=== PATIENT | male | born 1965 | race Caucasian/White ===

== ENCOUNTER 2018-01-20 23:38 | Emergency (ER) | payer SELFPAY ==
[2018-01-20 23:43] VITALS: BP 189/121; PULSE 114; RESP 24; TEMP 37; O2SAT 98; BMI 30.7
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
[2018-01-21 00:14] VITALS: BP 165/100; PULSE 110; RESP 18; TEMP 37; O2SAT 97
== END 2018-01-21 00:21 | disposition home or self-care (01) ==
PROVIDERS: Emergency Provider Emergency Medicine; Family Provider Family Medicine
DX: T65.891A Toxic effect of other specified substances, accidental (unintentional), initial encounter (principal); H57.10 Ocular pain, unspecified eye; Y35.893A Legal intervention involving other specified means, suspect injured, initial encounter; Z02.89 Encounter for other administrative examinations
CPT/HCPCS: 99282

== ENCOUNTER 2020-12-28 09:14 | Emergency (ER) | payer SELFPAY ==
[2020-12-28 09:22] VITALS: BP 155/90; PULSE 82; RESP 16; TEMP 36.7; O2SAT 97; BMI 30.7
--- NOTE | 2020-12-28 09:28 | HMH.EDUTC ---
[facility] [place] Disposition Clinical Impression: Exposure to COVID-19 virus Disposition: Home, Self-Care Condition on Discharge: Good Instructions: Preventing the Spread of Coronavirus Discharge Instructions Additional Instructions: Drink plenty of fluids. Take tylenol for pain or fever. Return if you begin to have difficulty breathing. Follow up with your regular doctor. GO TO THE ER FOR ANY WORSENING SYMPTOMS Referrals: Arturo Tang MD [Primary Care Provider] - Time of Disposition: 09:29 Medical Decision Making - Medical Records Medical records reviewed: No: I reviewed the patient's medical records. - Titus Inquiry Pt receiving controlled substance: No Vital Signs: 12/28/20 09:22 12/28/20 09:30 Temperature 98.1 F 97.9 F Temperature Source Oral Oral Pulse Rate 84 Pulse Rate [Right] 82 Respiratory Rate 16 16 Blood Pressure 146/89 H Blood Pressure [Left Arm] 155/90 H Blood Pressure Mean [Left Arm] 111 Blood Pressure Source [Left Arm] Automatic Cuff Blood Pressure Position [Left Arm] Sitting 02 Sat by Pulse Oximetry 97 Oxygen Delivery Method Room Air Orders (Tests/Meds): ORDERS Category Date Time Status Covid-19 Nasal PCR ([facility]) Routine Lab 12/28/20 09:23 Ordered [facility] [place] HPI - General Stated complaint: covid test for travel Time Seen by Provider: 12/28/20 09:29 Mode of Arrival: Ambulatory Source of Information: Patient Limitations: No Limitations Description of Symptoms (Recalled from Triage Doc. by RN): pt needs a covid pcr for travel purposes. pt is asymptomatic. HEENT Symptoms (Recalled from RN notes): No Resp Symptoms (Recalled from RN notes): No Skin Symptoms (Recalled from RN notes): No MS Symptoms (Recalled from RN notes): No Functional Status (Recalled from RN notes): na - History of Present Illness Provider Complaint: He is here for a covid-19 test. He will be having to travel internationally and he needs a covid-19 before he can be allowed to do this. He denies any symptoms. - Related Data Home Medications Medication Instructions Recorded Confirmed Amlodipine Besylate [Norvasc 10mg 10 mg PO DAILY 01/20/18 01/20/18 tablet] hydroCHLOROthiazide [HCTZ 12.5mg 12.5 mg PO DAILY 01/20/18 01/20/18 cap] Allergies Allergy/AdvReac Type Severity Reaction Status Date / Time IODINE Allergy Unknown SWELLING Uncoded 11/12/17 15:06 - Worker's Comp Is this a Worker's Comp case?: No [facility] History - Hepatitis A Screen Drug use history?: No High risk sexual behaviors?: No History of sexually transmitted infection?: No Currently employed?: No Childcare worker?: No Do you have indoor plumbing?: Yes Do you have electricity?: Yes Attestation statement:: This patient has been screened for Hepatitis A risk factors. I have reviewed the patient's past medical history: Yes Medical History: Denies:: Cancer, Diabetes Mellitus Type 1, Diabetes Mellitus Type 2, MRSA Amputation: No Fractures: No - Social History Smoking Status: Never smoker Alcohol Intake: never Occupational Status: employed ROS Obtained: Yes All systems reviewed & no additional complaints - Constitutional Constitutional: Reports system reviewed and no additional complaints, except as docu - Eyes Eyes: Reports system reviewed and no additional complaints, except as docu - ENT Ears, Nose, Mouth, and Throat: Reports system reviewed and no additional complaints, except as docu - Cardiovascular Cardiovascular: Reports system reviewed and no additional complaints, except as docu - Respiratory Respiratory: Reports system reviewed and no additional complaints, except as docu - Gastrointestinal Gastrointestingal: Reports: system reviewed and no additional complaints, except as docu Physical Exam - General General appearance: alert, in no apparent distress - Head Head exam: atraumatic, normocephalic, normal inspection - Eye Eye exam: Present: normal appearance, PER
[2020-12-28 09:30] VITALS: BP 146/89; PULSE 84; RESP 16; TEMP 36.6
== END 2020-12-28 09:31 | disposition home or self-care (01) ==
PROVIDERS: Emergency Provider Nurse Practitioner Family; PCP Family Medicine
DX: Z20.822 Contact with and (suspected) exposure to COVID-19 (principal)
CPT/HCPCS: 99202; G0463; U0003